=== PATIENT | female | born 1930 | race Caucasian/White ===

== ENCOUNTER 2019-06-07 18:41 | Emergency (ER) | payer MEDICARE, OTHER ==
[~2019-06-07] VITALS: Ht 160 cm; Wt 95.0 kg
[2019-06-07] MEDS ORDERED: SYNTHROID150 MCG PO (18:58)
[2019-06-07] MEDS ORDERED: METFORMIN500 M2 PO (18:59)
[2019-06-07] MEDS ORDERED: GLIPIZIDE ER10 M1 PO (18:59)
[2019-06-07] MEDS ORDERED: CELEBREX100 MG PO (19:00)
[2019-06-07] MEDS ORDERED: CRESTOR5 M1 PO (19:01)
[2019-06-07] MEDS ORDERED: ZETIA10 MG PO (19:01)
[2019-06-07] MEDS ORDERED: SINGULAIR10 MG PO (19:02)
[2019-06-07] MEDS ORDERED: HYDROCHLOROT12.5 MG PO (19:02)
[2019-06-07] MEDS ORDERED: OSCAL 500/1 TAB PO (19:03)
[2019-06-07] MEDS ORDERED: XANAX0.25 MG PO (19:03)
[2019-06-07] MEDS ORDERED: MULTIVITAMI3 PO (19:04)
[2019-06-07 19:39] LABS: HEMATOCRIT 42.5 % (37.0-47.0); HEMOGLOBIN 13.6 g/dl (12.0-16.0); IMMATURE GRANULOCYTES 0.3 % (0.0-5.0); MEAN CELL VOLUME 99.8 fL CALC (80.0-100.0); MEAN CORPUSCULAR HGB 31.9 pG CALC (26.0-32.0); NEUT# 3.92 thou/uL (2.00-7.15); RED BLOOD COUNT 4.26 mill/uL (4.20-5.60); RED CELL DISTRI WIDTH 12.7 % (11.5-15.5)
[2019-06-07 19:49] LABS: ALBUMIN 4.5 g/dL (3.2-5.0); ALKALINE PHOSPHATASE 74 u/l (38-126); BILIRUBIN, TOTAL 0.4 mg/dL (0.0-1.4); BUN 41 mg/dL (8-23); BUN/CREATININE RATIO 23 (12-20 (CALC)); CHLORIDE 104 mmol/l (95-108); CREATININE 1.8 mg/dL (0.5-1.0); GFR 26 ML/MIN (>=60 (CALC)); GFR FOR AFR.AMER. 32 ML/MIN (>=60 (CALC)); POTASSIUM 5.1 mmol/l (3.5-5.1); SGOT/AST 22 u/l (9-36); SODIUM 138 mmol/l (137-146); TOTAL PROTEIN 7.4 g/dL (6.3-8.2)
[2019-06-07 19:55] LABS: ANION GAP 19 (6-22 (CALC)); CARBON DIOXIDE 20 mmol/l (22-30)
[2019-06-07 20:39] LABS: URINE BILIRUBIN - DIPSTICK NEGATIVE (NEGATIVE); URINE BLOOD DIPSTICK NEGATIVE (NEGATIVE); URINE COLOR YELLOW; URINE GLUCOSE - DIPSTICK >=1000 mg/dL (NEGATIVE); URINE KETONE NEGATIVE (NEGATIVE); URINE LEUK ESTERASE NEGATIVE (NEGATIVE); URINE NITRITE - DIPSTICK NEGATIVE (Negative); URINE PROTEIN - DIPSTICK NEGATIVE (NEG-TRACE); URINE UROBILINOGEN - DIPSTICK 0.2 E.U./dL (0.2)
[2019-06-07] MEDS ORDERED: ANTIVERT PO (20:53)
[2019-06-07 21:10] VITALS: BP 133/67
[2019-06-08] MEDS ORDERED: ANTIVERT PO (10:15)
== END 2019-06-07 21:10 | disposition home or self-care (01) ==
LOC: ED 18:41
PROVIDERS: Family Medicine
DX: R42 Dizziness and giddiness (principal); E11.9 Type 2 diabetes mellitus without complications; I10 Essential (primary) hypertension; Z87.440 Personal history of urinary (tract) infections; Z79.4 Long term (current) use of insulin